=== PATIENT | female | born 1985 | race Caucasian/White ===

== ENCOUNTER 2018-09-27 08:35 | Observation (INO) ==
--- NOTE | 2018-09-27 09:02 | ED ---
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 Patient took vasotec yesterday evening, and was at the [facility] office for her scheduled D &C but was in significant discomfort so was sent to the ED. Patient passed a small amount of fluid and feels improved. MD Complaint: Reports "contractions" Onset (ago): hour(s) (7) Pain Consistency: now resolved Location: Reports pelvis Severity: severe Quality: Cramping Radiation: Reports pelvis Associated symptoms: Reports vaginal bleeding and vaginal discharge; Denies nausea, vomiting and shortness of breath Vaginal discharge: Reports "felt water broke" Review of Systems ROS: all other systems reviewed are negative PMFSH - Medical History Medical History Miscarriage (Acute) (Acute) Social History Social History Substance History: No History of Abuse Smoking Status: Never smoker How Often Do You Have a Drink Containing Alcohol: Never Exam Narrative Exam Narrative: GENERAL: Awake, alert, no acute distress SKIN: Focused skin assessment warm/dry. HEAD: Atraumatic. Normocephalic. EYES: Pupils equal and round. No scleral icterus. No injection or drainage. ENT: No nasal bleeding or discharge. Mucous membranes pink and moist. NECK: Trachea midline. No JVD. CARDIOVASCULAR: Regular rate and rhythm. No murmur appreciated. RESPIRATORY: No accessory muscle use. Clear to auscultation. Breath sounds equal bilaterally. GASTROINTESTINAL: Abdomen soft, non-tender, nondistended. Hepatic and splenic margins not palpable. MUSCULOSKELETAL: No obvious deformities. No clubbing. No cyanosis. No edema. NEUROLOGICAL: Awake and alert. No obvious cranial nerve deficits. Motor grossly within normal limits. Normal speech. PSYCHIATRIC: Appropriate mood and affect; insight and judgment normal. Course Initial Documented Vital Signs Temperature 97.9 F 09/27/18 09:05 Pulse Rate 67 09/27/18 09:05 Respiratory Rate 20 09/27/18 09:05 Blood Pressure 121/74 09/27/18 09:05 Pulse Oximetry 100 09/27/18 09:05 Last Documented Vital Signs Temperature 97.9 F 09/27/18 09:06 Pulse Rate 67 09/27/18 09:06 Respiratory Rate 19 09/27/18 09:06 Blood Pressure 121/74 09/27/18 09:06 Pulse Oximetry 100 09/27/18 09:06 Medical Decision Making MDM Narrative Medical decision making narrative: 33-year-old female with missed scheduled for D&C today presents for evaluation from the [facility] office of severe lower abdominal cramping. Symptoms resolved prior to evaluation in the emergency department. [facility] Dr. Sánchez at bedside and will take patient to the operating room for D&C. Will admit to same day surgery. Medical Screen Exam Complete: Yes Emergency Medical Condition: Yes Discharge Plan Discharge Disposition Patient Disposition: ED Admit(ED Internal Use Only) Discharge Condition Condition: Stable Discharge Order Discharge Orders: ED Use Only Admit Order (Routine); Ordered 09/27/18 Ordered By: Ayaka Jackson Discharge Details Diagnosis: Incomplete miscarriage Physicians Team ED Provider: Ayaka Jackson Primary Care Provider: Primary Care Catherine Hobson Rxs /Orders / Referrals /Forms Prescriptions: No Action omega 2-mkz-rju-fish oil [Fish Oil] 1,000 mg (120 mg-180 mg) Capsule 1,000 mg PO DAILY RF: 0 Discharge Instructions Patient Printed Instructions: Dilation and Curettage (DC) Discharge Interventions Interventions: Vital Signs Last Done: 09/27/18 09:06 Status ED Status: With Doctor
[2018-09-27] MEDS ORDERED: ceFAZolin 2 GM Premix Inj 2 GM/50 ML PIGGYBACK IV.SIG PRN (09:07)
[2018-09-27] MEDS ORDERED: Sod Chloride 0.9% Inj 1,000 ML IV.SIG SCH (09:15)
[2018-09-27 09:45] LABS: Hematocrit 40.3 % (35.0-46.0); Hemoglobin 13.7 gm/dL (11.6-15.3); Mean Corpuscular Hemoglobin 28.7 pg (27.0-34.0); Mean Corpuscular Volume 84.4 fL (80.0-100.0); Mean Platelet Volume 8.2 fL (7.0-11.0); Platelet Count 221 th/mm3 (150-450); Red Blood Count 4.78 mil/mm3 (4.00-5.30); Red Cell Distribution Width 14.2 % (11.6-17.2); White Blood Count 6.1 th/mm3 (4.0-11.0)
[2018-09-27] MEDS ORDERED: Methylergonovine Inj 0.2 MG/ML Ampul ONE (09:54)
--- NOTE | 2018-09-27 10:28 | P.HPOB ---
History of Present Illness Reason for admission: missed Planned procedure: suction D and C Narrative: Glenis oCbb is a 33 year old female with severe pain for D&C with suction Review of Systems All other systems reviewed negative except as stated in HPI PMFSH - History History Provided By: Patient - Medical History Medical History: Medical History (Last Reviewed 09/27/18 @ 09:19 by Ayaka Jackson MD) Miscarriage - Surgical History Surgical History: Surgical History (Last Updated 09/27/18 @ 10:27 by Jung Walker MD) H/O LEEP History of fasciotomy - Tobacco History Smoking Status: Never smoker - Alcohol History How Often Do You Have a Drink Containing Alcohol: Never - Substance Use History Substance History: No History of Abuse - Immunization History Tetanus Immunization: Unsure Medications and Allergies Active Medications: Active Medications Cefazolin Sodium/Dextrose (Ancef 2 Gm Premix Inj) 2 gm in 50 mls @ 100 mls/hr 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 Reason: ABDOMINAL PAIN Stop: 10/01/18 09:06 Last Admin: 09/27/18 09:39 Dose: 100 mls/hr Allergies Allergy/AdvReac Type Severity Reaction Status Date / Time No Known Allergies Allergy Verified 09/27/18 09:02 Home Medications Medication Instructions Recorded Confirmed Type omega 5-hit-ghh-fish oil [Fish Oil] 1,000 mg PO DAILY 09/27/18 09/27/18 History Physical Exam Vital signs: Temp Pulse Resp BP Pulse Ox 97.9 F 67 19 121/74 100 09/27/18 09:06 09/27/18 09:06 09/27/18 09:06 09/27/18 09:06 09/27/18 09:06 - Constitutional no acute distress - Routine Respiratory Exam Present: CTA bilaterally - Routine Cardiovascular Exam Present: RRR - Routine Abdominal Exam Present: soft - Routine Exam Patient deferred: external exam Perineal: Present: Intact - Detailed Pelvic Exam Uterus: Present: enlarged Results - Labs CBC & Chem 7: 09/27/18 09:10 Labs: Short CBC 09/27/18 Range/Units 09:10 WBC 6.1 (4.0-11.0) th/mm3 Hgb 13.7 (11.6-15.3) gm/dL Hct 40.3 (35.0-46.0) % Plt Count 221 (150-450) th/mm3 Assessment and Plan - Assessment (1) Incomplete miscarriage Code(s): O03.4 - Incomplete spontaneous without complication Status: Acute
[2018-09-27] MEDS ORDERED: ALBUMIN HUMAN 5% IV.SIG ONE (10:30)
--- NOTE | 2018-09-27 10:31 | MH ---
cc: Jung Walker MD DATE OF ADMISSION: 09/27/2018 HISTORY AND PHYSICAL: This is a 33-year-old, 3, para 2, who was diagnosed with a miscarriage this . The patient has a 7-week fetus with no cardiac activity. The patient was doing very well. She received some medicine last night; started to have severe cramping and came in with pain in the office and was writhing in pain, was sent to the emergency room for evaluation and D and C in the hospital. PAST MEDICAL HISTORY: None. PAST SURGICAL HISTORY: She had a LEEP procedure in 2013, she had a left oophorectomy in 2000. She had a lower leg fasciotomy in 2014. OBSTETRIC HISTORY: She has had 3 pregnancies, 2 vaginal births. PAVER LAYER HISTORY: Negative, except for the LEEP. MEDICATIONS: She took 200 mcg Cytotec intravaginally this week and had severe pain. ALLERGIES: MILK. REVIEW OF SYSTEMS: Only significant for severe cramping and pain with this 7-week missed . Patient's review of systems otherwise unremarkable. PHYSICAL EXAMINATION: VITAL SIGNS: Stable and afebrile. NECK: Thyroid palpated, normal. HEART: Regular rate and rhythm without murmur or gallop. LUNGS: Clear to auscultation bilaterally. ABDOMEN: Soft, nontender, nondistended. GENITOURINARY: She has no active vaginal bleeding. She passed a large amount of fluid. EXTREMITIES: Her lower extremities, no edema. IMPRESSION AND PLAN: At this time, is a missed . The patient will then undergo dilation and curettage with suction. She is aware of risks, benefits, and alternatives; has signed consent. Jung Walker MD JWM/randall , 10:14 AM , 10:22 AM
[2018-09-27] MEDS ORDERED: fentaNYL Citrate Inj 100 MCG/2 ML Ampul ONE (10:42)
[2018-09-27] MEDS ORDERED: Famotidine PF Inj 20 MG/2 ML Vial ONE (10:44)
[2018-09-27] MEDS ORDERED: Lidocaine PF 1% Inj 5 ML Syringe OTHER ONE (10:51)
[2018-09-27] MEDS ORDERED: Ketorolac Inj 30 MG/ML (IVP) Vial IV.PUSH ONE (10:51)
[2018-09-27] MEDS ORDERED: Post-op Orders (for Pharmacy) OTHER ONE (11:27)
[2018-09-27] MEDS ORDERED: Promethazine 25 MG Supp RECTAL PRN (11:27)
[2018-09-27] MEDS ORDERED: Bisacodyl 10 MG Supp RECTAL PRN (11:27)
--- NOTE | 2018-09-27 11:29 | P.OP ---
- Preoperative Diagnosis (1) Incomplete miscarriage - Postoperative Diagnosis (1) Incomplete miscarriage Date of procedure: 09/27/18 Procedure: D&C with suction Anesthesia: AUDIE Surgeon: Jung Walker MD Estimated blood loss (mL): 150 Pathology: other (POC)
[2018-09-27] MEDS ORDERED: Sod Chloride 0.9% Inj 1,000 ML IV.CONT SCH (11:30)
--- NOTE | 2018-09-27 11:54 | MP ---
cc: Jung Walker MD DATE OF OPERATION: DATE OF PROCEDURE: 09/27/2018 PROCEDURE: Dilatation and curettage suction curette. PREOPERATIVE DIAGNOSIS: Incomplete . POSTOPERATIVE DIAGNOSIS: Incomplete . SURGEON: Jung Walker MD ESTIMATED BLOOD LOSS: 150 mL. ANESTHESIA: General. SPECIMENS: Included products of conception. PROCEDURE IN DETAIL: After informed consent, the patient was taken to the operating room where she was placed under general anesthesia, was placed in a supine position, legs in the candy cane stirrups, abdomen, perineum, and vagina were prepped and draped in normal sterile fashion. Bladder was empty. After adequate anesthesia assured and timeout was taken a speculum was placed in the vagina. The patient was having active bright red bleeding. Tissue was at the os and the os was open. Tissue was taken from the os with a ring forceps and about 100 mL of blood followed. Suction curette was passed to the fundus, which was about 9 cm, all products of conception were evacuated. Sharp curette was passed in all 4 quadrants, still there was no remaining products of conception and the suction curette was passed 1 last time. Procedure was ended. The uterus was given and massaged to stop the bleeding. It clamped down well. Minimal bleeding was occurring. The patient was taken to recovery room in stable condition after being awakened. Jung Walker MD JWM/ch , 11:31 AM , 11:39 AM
[2018-09-27 12:17] VITALS: RESP 16; TEMP 98.3; O2SAT 98
[2018-09-27 13:34] VITALS: BP 100/63; PULSE 64
[2018-09-27] MEDS ORDERED: Ketorolac Inj 30 MG/ML (IVP) Vial IV.PUSH PRN (17:00)
[2018-09-27] MEDS ORDERED: Senna/Docusate Sodium 8.6/50 MG Tablet PO SCH (21:00)
== END 2018-09-27 12:45 | disposition home or self-care (01) ==
LOC: NEDA 08:35 → NEPC 08:35 → NEDA 09:45
PROVIDERS: ADMIT Obstetrics & Gynecology; ATTEND Obstetrics & Gynecology
DX: O03.4 Incomplete spontaneous abortion without complication
CPT/HCPCS: 85027; 88305; 99285; J0131; J0690; J1100; J1885; J2210; J2405; J2590; J2704; J3010; J7030; J8501; P9045